=== PATIENT | female | born 1970 | race Caucasian/White ===

== ENCOUNTER 2017-12-28 18:59 | Inpatient (IN) | payer SELFPAY ==
[~2017-12-28] VITALS: Ht 162.6 cm; Wt 74.6 kg
[2017-12-28 19:04] VITALS: BP 126/78; PULSE 103; RESP 15; TEMP 98.1; O2SAT 96
[2017-12-28] MEDS ORDERED: HUMA100I3 SQ (19:10)
[2017-12-28] MEDS ORDERED: LEVO112T2 PO (19:10)
[2017-12-28 20:31] LABS: AUTOMATED NEUTROPHIL # 9.9 TH/MM3 (1.8-7.7); BASOPHIL # 0.1 TH/MM3 (0-0.2); BASOPHIL % 0.7 % (0.0-2.0); EOSINOPHIL # 0.1 TH/MM3 (0-0.4); EOSINOPHIL % 0.8 % (0.0-4.0); HEMATOCRIT 40.7 % (35.0-46.0); HEMOGLOBIN 13.6 GM/DL (11.6-15.3); LYMPH % 10.5 % (9.0-44.0); LYMPHOCYTE # 1.2 TH/MM3 (1.0-4.8); MEAN CELL VOLUME 94.5 FL (80.0-100.0); MEAN CORPUSCULAR HEMOGLOBIN 31.7 PG (27.0-34.0); MEAN CORPUSCULAR HGB CONC 33.5 % (32.0-36.0); MEAN PLATELET VOLUME 7.6 FL (7.0-11.0); MONO % 4.4 % (0.0-8.0); MONOCYTE # 0.5 TH/MM3 (0-0.9); NEUT % 83.6 % (16.0-70.0); PLATELET COUNT 301 TH/MM3 (150-450); RED CELL DISTRIBUTION WIDTH 12.8 % (11.6-17.2); WHITE BLOOD COUNT 11.8 TH/MM3 (4.0-11.0)
[2017-12-28 20:32] VITALS: O2SAT 97
[2017-12-28 20:34] VITALS: BP 130/74; PULSE 95; RESP 18; TEMP 98.2; O2SAT 97
[2017-12-28 20:34] LABS: BILIRUBIN, URINE NEG (NEG); BLOOD, URINE NEG (NEG); GLUCOSE,URINE 250 mg/dL (NEG); KETONE, URINE 80 OR GREATER mg/dL (NEG); NITRITE,URINE NEG (NEG); PH, URINE 5.5 (5.0-8.5); URINE LEUKOCYTE ESTERASE NEG (NEG)
[2017-12-28 20:39] LABS: CHLORIDE 99 MEQ/L (98-107); SODIUM (NA) 132 MEQ/L (136-145)
[2017-12-28 20:41] LABS: URINE COLOR YELLOW (YELLW/STRAW)
[2017-12-28 20:42] LABS: CALCIUM 8.7 MG/DL (8.5-10.1); SQUAMOUS EPITHELIAL CELL URINE 0-5 /hpf (0-5); WHITE BLOOD CELL CLUMPS FEW
[2017-12-28 20:43] LABS: ALBUMIN 3.9 GM/DL (3.4-5.0); BICARBONATE 22.7 MEQ/L (21.0-32.0); BLOOD UREA NITROGEN 16 MG/DL (7-18); GLUCOSE,RANDOM 326 MG/DL (74-106)
[2017-12-28 20:45] LABS: ALT (GPT) 24 U/L (10-53); AST (GOT) 14 U/L (15-37); GLOMERULAR FILTRATION RATE 77 ML/MIN (>89)
[2017-12-28 20:47] LABS: TOTAL BILIRUBIN ADULT 0.7 MG/DL (0.2-1.0); TOTAL PROTEIN 7.6 GM/DL (6.4-8.2)
[2017-12-28 20:48] LABS: ALKALINE PHOSPHATASE 126 U/L (45-117)
--- NOTE | 2017-12-28 20:53 | PD ---
HPI Chief Complaint: GI Complaint Time Seen by Provider: 20:51 Travel History International Travel<30 days: No Contact w/Intl Traveler<30days: No Traveled to known affect area: No History of Present Illness HPI The patient is a 47-year-old female that complains of primarily lower abdominal pain with vomiting since this morning. She had diarrhea once. She denies any fever. She claims the pain level of 7/10 and it is cramping pain. She is an insulin-dependent diabetic. She comes from [place] and has no local primary care physician. She states she does feel dehydrated. PFS Past Medical History Diabetes: Yes Patient Takes Glucophage: No Thyroid Disease: Yes Tetanus Vaccination: < 5 Years Influenza Vaccination: No ?: Unknown Past Surgical History Surgical History: No Previous Surgery Social History Alcohol Use: No Tobacco Use: Yes Substance Use: No Allergies-Medications (Allergen,Severity, Reaction): Coded Allergies: Penicillins (Verified Allergy, Severe, Swelling, 12/28/17) Reported Meds & Prescriptions Reported Meds & Active Scripts Active Reported Humalog Kwikpen Pen Inj (Insulin Lispro (Human) Inj) 300 Unit/3 Ml Pen 1 Units SQ Levothyroxine (Levothyroxine Sodium) 112 Mcg Tab 112 Mcg PO DAILY Review of Systems Except as stated in HPI: all other systems reviewed are Neg Physical Exam Narrative GENERAL: The patient is alert, mild dehydration appearing, oriented 3 in moderate apparent distress with her abdominal discomfort. Her vital signs show heart rate 103 but otherwise are normal. SKIN: Focused skin assessment warm/dry. HEAD: Atraumatic. Normocephalic. EYES: Pupils equal and round. No scleral icterus. No injection or drainage. ENT: No nasal bleeding or discharge. Mucous membranes pink and moist. NECK: Trachea midline. No JVD. CARDIOVASCULAR: Regular rate and rhythm. No murmur appreciated. RESPIRATORY: No accessory muscle use. Clear to auscultation. Breath sounds equal bilaterally. GASTROINTESTINAL: Abdomen soft, with tenderness to direct palpation in bilateral lower quadrants, right greater than left, nondistended. Hepatic and splenic margins not palpable. No guarding or rebound is present. MUSCULOSKELETAL: No obvious deformities. No clubbing. No cyanosis. No edema. NEUROLOGICAL: Awake and alert. No obvious cranial nerve deficits. Motor grossly within normal limits. Normal speech. PSYCHIATRIC: Appropriate mood and affect; insight and judgment normal. Data Data Last Documented VS Vital Signs Date Time Temp Pulse Resp B/P (MAP) Pulse Ox O2 Delivery O2 Flow Rate FiO2 12/28/17 22:58 100 18 124/77 (93) 100 Room Air 12/28/17 20:34 98.2 Orders Orders Complete Blood Count With Diff (12/28/17 20:15) Comprehensive Metabolic Panel (12/28/17 20:15) Urinalysis - C+S If Indicated (12/28/17 20:15) Iv Access Insert/Monitor (12/28/17 20:15) Oximetry (12/28/17 20:15) Lipase (12/28/17 20:15) Urine Culture (12/28/17 20:23) Ondansetron Inj (Zofran Inj) (12/28/17 21:00) Sodium Chlor 0.9% 1000 Ml Inj (Ns 1000 M (12/28/17 21:00) Morphine Inj (Morphine Inj) (12/28/17 21:00) Ct Abd/Pel W Iv Contrast(Rout) (12/28/17 22:18) Iohexol 350 Inj (Omnipaque 350 Inj) (12/28/17 22:59) Labs Laboratory Tests Test 12/28/17 20:23 White Blood Count 11.8 TH/MM3 Red Blood Count 4.30 MIL/MM3 Hemoglobin 13.6 GM/DL Hematocrit 40.7 % Mean Corpuscular Volume 94.5 FL Mean Corpuscular Hemoglobin 31.7 PG Mean Corpuscular Hemoglobin Concent 33.5 % Red Cell Distribution Width 12.8 % Platelet Count 301 TH/MM3 Mean Platelet Volume 7.6 FL Neutrophils (%) (Auto) 83.6 % Lymphocytes (%) (Auto) 10.5 % Monocytes (%) (Auto) 4.4 % Eosinophils (%) (Auto) 0.8 % Basophils (%) (Auto) 0.7 % Neutrophils # (Auto) 9.9 TH/MM3 Lymphocytes # (Auto) 1.2 TH/MM3 Monocytes # (Auto) 0.5 TH/MM3 Eosinophils # (Auto) 0.1 TH/MM3 Basophils # (Auto) 0.1 TH/MM3 CBC Comment DIFF FINAL Differential Comment Urine Color YELLOW Urine Turbidity CLEAR Urine pH 5.5 Urine Specific [place] GREATER THAN 1.035 Urine Protein NEG mg/dL Urine Glucose (UA) 250 mg/dL Urine Ketones 80 OR GREATER mg/dL Urine Occult Blood NEG Urine Nitrite NEG Urine Bilirubin NEG Urine Leukocyte Esterase NEG Urine WBC 9-14 /hpf Urine WBC Clumps FEW Urine Squamous Epithelial Cells 0-5 /hpf Microscopic Urinalysis Comment CULTURE INDICATED Blood Urea Nitrogen 16 MG/DL Creatinine 0.80 MG/DL Random Glucose 326 MG/DL Total Protein 7.6 GM/DL Albumin 3.9 GM/DL Calcium Level 8.7 MG/DL Alkaline Phosphatase 126 U/L Aspartate Amino Transf (AST/SGOT) 14 U/L Alanine Aminotransferase (ALT/SGPT) 24 U/L Total Bilirubin 0.7 MG/DL Sodium Level 132 MEQ/L Potassium Level 3.8 MEQ/L Chloride Level 99 MEQ/L Carbon Dioxide Level 22.7 MEQ/L Anion Gap 10 MEQ/L Estimat Glomerular Filtration Rate 77 ML/MIN Lipase 103 U/L MDM Medical Decision Making Medical Screen Exam Complete: Yes Emergency Medical Condition: Yes Medical Record Reviewed: Yes Interpretation(s) An 80 or greater ketones and 9-14 white cells with few white cell clampings and culture is indicated. The complete metabolic profile shows a GFR of 77, glucose 326, alkaline phosphatase 126 with sodium 132 but is otherwise unremarkable. The lipase is normal. The CBC shows a white count of 11,800 with 84% neutrophils but is otherwise unremarkable. The CT abdomen pelvis shows acute appendicitis, there are no free air, focal drainable fluid collections and the bowel otherwise appears normal. Differential Diagnosis Sinusitis, gastroenteritis, colitis, diverticulitis, electrolyte disorder, dehydration, anemia, urinary tract infection Narrative Course The patient has acute appendicitis. She also has a possible urine infection. Walter Pa MD Dec 28, 2017 20:53
[2017-12-28] MEDS ORDERED: MORPHINE SULFATE 4 MG/ML INJ IV PUSH ONE (21:00)
[2017-12-28] MEDS ORDERED: ONDANSETRON HCL 4 MG/2 ML VIAL IV ONE (21:00)
[2017-12-28] MEDS: SODIUM CHLOR 0.9% 1000 ML INJ 1,000 ML IV SCH ×2 (21:10→22:30)
[2017-12-28 22:58] VITALS: BP 124/77; PULSE 100; RESP 18; O2SAT 100
[2017-12-28] MEDS ORDERED: IOHEXOL 350 MG/ML 10 ML VIAL (for RAD DIAG) IVCONTRAST ONE (22:59)
--- NOTE | 2017-12-28 23:12 | RADRPT ---
EXAM DATE/TIME: 12/28/2017 22:55 [facility] COMPARISON: No previous studies available for comparison. INDICATIONS : Abdominal pain with vomiting. IV CONTRAST: 100 cc Omnipaque 350 (iohexol) IV ORAL CONTRAST: No oral contrast ingested. RADIATION DOSE: 12.64 CTDIvol (mGy) MEDICAL HISTORY : Diabetes mellitus type 2. SURGICAL HISTORY : None. ENCOUNTER: Initial ACUITY: 1 day PAIN SCALE: 7/10 LOCATION: abdomen TECHNIQUE: Volumetric scanning of the abdomen and pelvis was performed. Using automated exposure control and ad justment of the mA and/or kV according to patient size, radiation dose was kept as low as reasonably achievable to obtain optimal diagnostic quality images. DICOM format image data is available electro nically for review and comparison. FINDINGS: LOWER LUNGS: The visualized lower lungs are clear. LIVER: Homogeneous density without lesion. There is no dilation of the biliary tree. No calcified gallston es. SPLEEN: Normal size without lesion. PANCREAS: Within normal limits. KIDNEYS: Bilateral small subcentimeter hypodense cystic lesions which are to small to fully characterize. Symm etrical enhancement without evidence for radiopaque renal calculi or hydronephrosis. ADRENAL GLANDS: 1 cm nodule in the left adrenal gland. VASCULAR: There is no aortic aneurysm. BOWEL/MESENTERY: The appendix is enlarged with mild surrounding inflammatory stranding. No free air or focal drainable fluid collections. Bowel otherwise appears unremarkable. ABDOMINAL WALL: Within normal limits. RETROPERITONEUM: There is no lymphadenopathy. BLADDER: No wall thickening or mass. REPRODUCTIVE: Within normal limits. INGUINAL: There is no lymphadenopathy or hernia. MUSCULOSKELETAL: Within normal limits for patient age. CONCLUSION: 1. Findings consistent with acute appendicitis. No evidence for rupture or abscess at this time. 2. 1 cm left adrenal nodule. This demonstrates indeterminate density on this enhanced CT exam. Adrena l mass MRI exam may be performed for further evaluation on outpatient basis as clinically warranted. Lex Gallegos MD on December 28, 2017 at 23:08 Board Certified Radiologist. This report was verified electronically.
[2017-12-28] MEDS ORDERED: CHLORHEXIDINE GLUCONATE 2 % 1 PACK (2 CLOTHS) TOP PRN (23:30)
[2017-12-28] MEDS ORDERED: POTASSIUM CHLORIDE 25 MEQ EFFERVESCENT TAB PO PRN (23:30)
[2017-12-28] MEDS ORDERED: SODIUM PHOSPHATE INJ 30 MMOL in SODIUM CHLOR 0.9% 250 ML INJ 240 ML IV PRN (23:30)
[2017-12-28] MEDS ORDERED: RESP: ALBUTEROL 2.5 MG/IPRATROPIUM 0.5 MG NEB (PRN) INH (23:30)
[2017-12-28] MEDS ORDERED: LACTATED RINGER'S 1000 ML INJ 1,000 ML IV SCH (23:30)
[2017-12-28] MEDS ORDERED: MISC INFORMATION OTHER ONE (23:30)
[2017-12-28] MEDS ORDERED: POTASSIUM PHOSPHATE MONOBASIC 500 MG TAB PO/TUBE PRN (23:30)
[2017-12-28] MEDS ORDERED: MAGNESIUM OXIDE 400 MG TAB PO PRN (23:30)
[2017-12-28] MEDS ORDERED: INSULIN REGULAR (IV INFUSION) 100 UNITS in SODIUM CHLORIDE 0.9% INJ 99 ML IV PRN (23:30)
[2017-12-28] MEDS ORDERED: POTASSIUM PHOSPHATE MONOBASIC 500 MG TAB PO PRN (23:30)
[2017-12-28] MEDS ORDERED: LACTATED RINGER'S 1000 ML INJ 1,000 ML IV ONE (23:30)
[2017-12-28] MEDS ORDERED: POTASSIUM PHOSPHATE INJ 30 MMOL in SODIUM CHLOR 0.9% 250 ML INJ 250 ML IV PRN (23:30)
[2017-12-28] MEDS ORDERED: LEVOFLOXACIN 500 MG PREMIX INJ 100 ML IV ONE (23:30)
[2017-12-28] MEDS ORDERED: MAGNESIUM SULFATE INJ 4 GM in SODIUM CHLORIDE 0.9% INJ 92 ML IV PRN (23:30)
[2017-12-28] MEDS ORDERED: CIPROFLOXACIN 400 MG PREMIX 200 ML IV ONE (23:30)
[2017-12-28] MEDS ORDERED: DEXTROSE 50% IN WATER 50 ML VIAL(D50) IV PUSH PRN (23:30)
[2017-12-28] MEDS ORDERED: POTASSIUM CHLOR 40 MEQ PREMIX 100 ML IV PRN ×2 (23:30)
[2017-12-28] MEDS ORDERED: POTASSIUM CHLOR 20 MEQ PREMIX 100 ML IV PRN ×2 (23:30)
[2017-12-28] MEDS ORDERED: MISCELLANEOUS NURSING INFORMATION XX SCH (23:30)
[2017-12-28] MEDS ORDERED: MAGNESIUM SULFATE INJ 2 GM in SODIUM CHLORIDE 0.9% INJ 96 ML IV PRN (23:30)
[2017-12-28] MEDS ORDERED: INSULIN HUMAN REGULAR 1,000 UNITS/10 ML VIAL IV PUSH ONE (23:30)
[2017-12-28] MEDS ORDERED: ONDANSETRON HCL 4 MG/2 ML VIAL IV PUSH PRN (23:30)
[2017-12-29] VITALS (9 sets, daily range): BP systolic 90–130; BP diastolic 54–70; PULSE 100–109; RESP 12–22; TEMP 98.4–98.7; O2SAT 95–99
[2017-12-29] MEDS ORDERED: MORPHINE SULFATE 4 MG/ML INJ IV PUSH ONE (00:15)
[2017-12-29] MEDS ORDERED: ONDANSETRON HCL 4 MG/2 ML VIAL IV ONE (00:15)
[2017-12-29] MEDS ORDERED: HYDROmorphone HCL PF 2 MG/ML VIAL IV PUSH PRN (02:45)
[2017-12-29] MEDS ORDERED: DEXTROSE 50% IN WATER 50 ML VIAL(D50) IV PUSH PRN (03:00)
[2017-12-29] MEDS ORDERED: INSULIN REGULAR (IV INFUSION) 100 UNITS in SODIUM CHLORIDE 0.9% INJ 99 ML IV PRN (03:00)
[2017-12-29] MEDS ORDERED: POTASSIUM CHLOR 20 MEQ PREMIX 100 ML IV ONE (03:00)
[2017-12-29] MEDS ORDERED: MISC INFORMATION OTHER ONE (03:00)
--- NOTE | 2017-12-29 03:03 | HHI.HP ---
HPI Service Critical Care Medicine Primary Care Physician No Primary Care Physician Admission Diagnosis Acute appendicitis, diabetes mellitus poor control, dehydration Diagnosis: Chief Complaint: abdominal pain Travel History International Travel<30 Days: No Contact w/Intl Traveler <30 Da: No Traveled to Known Affected Are: No History of Present Illness This is a 47-year-old female with a history of type 1 diabetes who presents with 1 day of right lower quadrant abdominal pain, nausea, vomiting. Patient has a number of family members who have been sick with gastroenteritis this week , and she initially thought this was a similar presentation. However her abdominal pain continue to worsen. In the emergency department she was found to have leukocytosis, and CT abdomen and pelvis which demonstrated acute appendicitis. She also has a glucose over 300 and high levels of ketones in her urine suggestive early DKA. Her anion gap is still 10 and she does not appear acidotic. Review of Systems Constitutional: COMPLAINS OF: Fever, Chills, DENIES: Fatigue Respiratory: DENIES: Cough, Wheezing, Sputum production, Shortness of breath Cardiovascular: DENIES: Chest pain, Syncope, Dyspnea on Exertion, Lower Extremity Edema Gastrointestinal: COMPLAINS OF: Abdominal pain, Nausea, Vomiting, DENIES: Black stools, Bloody stools, Constipation, Diarrhea Musculoskeletal: DENIES: Joint pain, Muscle aches Neurologic: DENIES: Abnormal gait, Headache Past Family Social History Allergies: Coded Allergies: Penicillins (Verified Allergy, Severe, Swelling, 12/28/17) Past Medical History Type I DM Hypothyroidism Past Surgical History No prior surgeries Reported Medications Humalog Kwikpen Pen Inj (Insulin Lispro (Human) Inj) 300 Unit/3 Ml Pen 1 Units SQ Levothyroxine (Levothyroxine Sodium) 112 Mcg Tab 112 Mcg PO DAILY Active Ordered Medications See MAR Family History reviewed and found to be noncontributory to her acute illness Social History +tob, denies etoh, doa. Physical Exam Vital Signs Vital Signs Date Time Temp Pulse Resp B/P (MAP) Pulse Ox O2 Delivery O2 Flow Rate FiO2 12/29/17 00:20 103 18 124/68 (86) 98 Room Air 12/28/17 22:58 100 18 124/77 (93) 100 Room Air 12/28/17 20:34 98.2 95 18 130/74 (92) 97 Room Air 12/28/17 20:32 97 Room Air 12/28/17 19:04 98.1 103 15 126/78 (94) 96 Physical Exam GENERAL: Middle-aged female, lying in bed, in distress due to abdominal pain HEENT: Normocephalic. Atraumatic. Pupils equal, round, reactive, conjugate. Mucous membranes are dry NECK: Trachea is midline. There is no JVD. CHEST: Mildly tachypneic. Room air. Equal chest rise. CARDIOVASCULAR: Normal rate, regular rhythm. Sinus by telemetry ABDOMEN: Soft, nontender, nondistended. No guarding. MUSCULOSKELETAL: Pulses 2+. No peripheral edema. NEUROLOGICAL: RASS 0. GCS 15. No focal deficits. Laboratory Laboratory Tests Test 12/28/17 20:23 12/29/17 00:04 12/29/17 01:30 White Blood Count 11.8 Red Blood Count 4.30 Hemoglobin 13.6 Hematocrit 40.7 Mean Corpuscular Volume 94.5 Mean Corpuscular Hemoglobin 31.7 Mean Corpuscular Hemoglobin Concent 33.5 Red Cell Distribution Width 12.8 Platelet Count 301 Mean Platelet Volume 7.6 Neutrophils (%) (Auto) 83.6 Lymphocytes (%) (Auto) 10.5 Monocytes (%) (Auto) 4.4 Eosinophils (%) (Auto) 0.8 Basophils (%) (Auto) 0.7 Neutrophils # (Auto) 9.9 Lymphocytes # (Auto) 1.2 Monocytes # (Auto) 0.5 Eosinophils # (Auto) 0.1 Basophils # (Auto) 0.1 CBC Comment DIFF FINAL Differential Comment Urine Color YELLOW Urine Turbidity CLEAR Urine pH 5.5 Urine Specific [place] GREATER THAN 1.035 Urine Protein NEG Urine Glucose (UA) 250 Urine Ketones 80 OR GREATER Urine Occult Blood NEG Urine Nitrite NEG Urine Bilirubin NEG Urine Leukocyte Esterase NEG Urine WBC 9-14 Urine WBC Clumps FEW Urine Squamous Epithelial Cells 0-5 Microscopic Urinalysis Comment CULTURE INDICATED Blood Urea Nitrogen 16 Creatinine 0.80 Random Glucose 326 Total Protein 7.6 Albumin 3.9 Calcium Level 8.7 Alkaline Phosphatase 126 Aspartate Amino Transf (AST/SGOT) 14 Alanine Aminotransferase (ALT/SGPT) 24 Total Bilirubin 0.7 Sodium Level 132 Potassium Level 3.8 Chloride Level 99 Carbon Dioxide Level 22.7 Anion Gap 10 Estimat Glomerular Filtration Rate 77 Lipase 103 Prothrombin Time 10.0 Prothromb Time International Ratio 1.0 Activated Partial Thromboplast Time 24.8 Date/Time Source Procedure Growth Status 12/28/17 20:23 Urine Clean Catch Urine Culture Pending Received Result Diagram: 12/28/17202212/28/172022 Imaging Last Impressions Abdomen/Pelvis CT 12/28/172217 Signed Impressions: Service Date/Time: Thursday, December 28, 2017 22:55 - CONCLUSION: 1. Findings consistent with acute appendicitis. No evidence for rupture or abscess at this time. 2. 1 cm left adrenal nodule. This demonstrates indeterminate density on this enhanced CT exam. Adrenal mass MRI exam may be performed for further evaluation on outpatient basis as clinically warranted. MD Sancho Fernando VTE Risk Assessment Caprini VTE Risk Assessment: Mod/High Risk (score >= 2) Caprini Risk Assessment Model Point Value = 1 Point Value = 2 Point Value = 3 Point Value = 5 Age 41-60 Minor surgery BMI > 25 kg/m2 Swollen legs Varicose veins or History of unexplained or recurrent spontaneous Oral contraceptives or hormone replacement Sepsis (< 1 month) Serious lung disease, including pneumonia (< 1 month) Abnormal pulmonary function Acute myocardial infarction Congestive heart failure (< 1 month) History of inflammatory bowel disease Medical patient at bed rest Age 61-74 Arthroscopic surgery Major open surgery (> 45 min) Laparoscopic surgery (> 45 min) Malignancy Confined to bed (> 72 hours) Immobilizing plaster cast Central venous access Age >= 75 History of VTE Family history of VTE Factor V Leiden Prothrombin [id number] Lupus anticoagulant Anticardiolipin antibodies Elevated serum homocysteine Heparin-induced thrombocytopenia Other congenital or acquired thrombophilia Stroke (< 1 month) Elective arthroplasty Hip, pelvis, or leg fracture Acute spinal cord injury (< 1 month) Prophylaxis Regimen Total Risk Factor Score Risk Level Prophylaxis Regimen 0-1 Low Early ambulation 2 Moderate Order ONE of the following: *Sequential Compression Device (SCD) *Heparin 5000 units SQ BID 3-4 Higher Order ONE of the following medications: *Heparin 5000 units SQ TID *Enoxaparin/Lovenox 40 mg SQ daily (WT < 150 kg, CrCl > 30 mL/min) *Enoxaparin/Lovenox 30 mg SQ daily (WT < 150 kg, CrCl > 10-29 mL/min) *Enoxaparin/Lovenox 30 mg SQ BID (WT < 150 kg, CrCl > 30 mL/min) AND/OR *Sequential Compression Device (SCD) 5 or more Highest Order ONE of the following medications: *Heparin 5000 units SQ TID (Preferred with Epidurals) *Enoxaparin/Lovenox 40 mg SQ daily (WT < 150 kg, CrCl > 30 mL/min) *Enoxaparin/Lovenox 30 mg SQ daily (WT < 150 kg, CrCl > 10-29 mL/min) *Enoxaparin/Lovenox 30 mg SQ BID (WT < 150 kg, CrCl > 30 mL/min) AND *Sequential Compression Device (SCD) Assessment and Plan Assessment and Plan Assessment: 47-year-old female with type 1 diabetes and acute appendicitis, also with evidence of early diabetic ketoacidosis. We'll admit to ICU. We'll start insulin drip and aggressive fluid resuscitation. We'll continue nothing by mouth status for now and plan on taking her first thing in the morning to the operating room with general surgery for appendectomy. Acute Appendicitis - antibiotics per surgery - dilaudid 0.5mg iv q3h prn for abdominal pain - NPO - gen surgery consulted. Diabetic Ketoacidosis - insulin drip algorithm #2 - D5LR @ 200cc/hr - aggressive K replacement - am BMP - q1h accuchecks - will need aggressive glycemic control and ensure she is adequately resuscitated to prevent perioperative morbidity from DKA. Hypothyroidism - home synthroid SCDs hold pharmacologic DVT prophylaxis pre-op. Dispo: admit to ICU for aggressive insulin therapy for early DKA. can go to surgery and if she improves post-operatively, can be transitioned out of ICU. Hamilton Langley MD Dec 29, 2017 03:03
[2017-12-29] MEDS: DEXTROSE 5%-LACTATED RING INJ 1,000 ML IV SCH ×3 (03:06→12:34)
[2017-12-29 03:40] LABS: BICARBONATE 22.8 MEQ/L (21.0-32.0); CALCIUM 8.2 MG/DL (8.5-10.1); CREATININE 0.58 MG/DL (0.50-1.00)
[2017-12-29 03:50] LABS: HEMATOCRIT 37.4 % (35.0-46.0); HEMOGLOBIN 12.6 GM/DL (11.6-15.3); MEAN CELL VOLUME 95.2 FL (80.0-100.0); MEAN CORPUSCULAR HEMOGLOBIN 32.2 PG (27.0-34.0); MEAN CORPUSCULAR HGB CONC 33.8 % (32.0-36.0); MEAN PLATELET VOLUME 7.3 FL (7.0-11.0); PLATELET COUNT 251 TH/MM3 (150-450); RED BLOOD COUNT 3.92 MIL/MM3 (4.00-5.30); RED CELL DISTRIBUTION WIDTH 13.4 % (11.6-17.2); WHITE BLOOD COUNT 10.6 TH/MM3 (4.0-11.0)
[2017-12-29] MEDS ORDERED: CHLORHEXIDINE GLUCONATE 2 % 1 PACK (2 CLOTHS) TOP SCH (04:00)
[2017-12-29] MEDS ORDERED: BUPIVACAINE/EPINEPHRINE 0.25% 50 ML VIAL ONE (06:46)
[2017-12-29] MEDS ORDERED: LEVOTHYROXINE SODIUM 112 MCG TAB PO SCH (07:00)
[2017-12-29] MEDS ORDERED: ACETAMINOPHEN/HYDROcodone 325 MG/10 MG TAB PO PRN (09:00)
[2017-12-29] MEDS ORDERED: NALOXONE HCL 0.4 MG/ML AMP IV PUSH PRN (09:00)
[2017-12-29] MEDS ORDERED: BENZOCAINE 20% ORAL SPR 60 ML CAN MT PRN (09:00)
[2017-12-29] MEDS ORDERED: ACETAMINOPHEN/HYDROcodone 325 MG/5 MG TAB PO PRN (09:00)
[2017-12-29] MEDS ORDERED: Post-op Orders (for Pharmacy) XX ONE (09:00)
[2017-12-29] MEDS ORDERED: MORPHINE SULFATE 4 MG/ML INJ ONE (09:22)
[2017-12-29] MEDS ORDERED: DO NOT ADM ANY ANTICOAGULANT DRUGS PRN (09:45)
--- NOTE | 2017-12-29 10:45 | MB ---
cc: Robin Bonilla MD DATE OF CONSULT: 12/29/2017 TIME: 0700 PHYSICIAN REQUESTING CONSULTATION: Jose Langley, intensive care laborer operator REASON FOR CONSULTATION: Early appendicitis, patient with early DKA. HISTORY OF PRESENT ILLNESS: The patient is a 47-year-old female with a history of type 1 diabetes who presented to [facility] several hours ago with right lower quadrant pain. Workup was performed and patient was found to have leukocytosis and CT scan concerning for appendicitis. The patient's sugars were 326 and the patient had greater than 80 ketones. The patient was not found to be acidotic, but was concerning for possible early development of DKA. The patient was transferred to [facility] intensive care unit and underwent insulin drip and resuscitation, hydration by intensive care unit for preoperative optimization. The patient was felt to be stable and blood sugars were under 150 this morning and the patient was felt to be a candidate to proceed to the operating room for appendectomy. The patient states that she is visiting from [place] and developed increasing right lower quadrant pain over the last 18 hours. No associated symptoms. She has had no nausea, vomiting, constipation, diarrhea, fevers, chills, night sweats, or any other complaints. REVIEW OF SYSTEMS: A 12-point review of systems was conducted with the patient and was negative except for the pertinent positives mentioned above in the history of present illness. PAST MEDICAL HISTORY: Insulin-dependent diabetes, hypothyroidism. PAST SURGICAL HISTORY: None. MEDICATIONS: Humalog insulin. She is on lispro insulin. She is on levothyroxine. FAMILY HISTORY: Noncontributory. SOCIAL HISTORY: The patient does have a history of tobacco use. Denies alcohol or illicit drug use. PHYSICAL EXAMINATION: VITAL SIGNS: Pulse 103, respiratory rate 18, blood pressure 124/68, O2 saturation 98%. The patient is a well-developed, well-nourished female, in no acute distress. HEENT: Head is normocephalic, atraumatic. Pupils are round and reactive, accommodate to light. Sclerae anicteric. Oral cavity is clear. Airway is patent. NECK: Supple. No JVD. Breath sounds are present bilaterally with an unlabored breathing pattern. HEART: Regular in rhythm. PMI is nondisplaced. ABDOMEN: Soft. Tender in the right lower quadrant subjectively without focal peritonitis or rebound tenderness. No surgical scars. No hernias. Normal bowel sounds. BACK: No CVA tenderness. EXTREMITIES: No clubbing, cyanosis, or edema. NEUROLOGIC: The patient is anxious. Mood, judgment, and insight are intact. The patient is alert and oriented x 3. Nonfocal peripheral exam. Cranial nerves 2-12 are grossly intact. ASSESSMENT AND PLAN: The patient is a 47-year-old female with likely acute appendicitis. The patient has a CT scan very concerning for appendicitis and the clinical history is consistent with acute appendicitis. This is likely nonruptured, is early appendicitis. I agree with optimization and treatment of the patient's glucose and ketonuria and dehydration prior to surgery and anesthesia. The patient, I do feel, is stable for surgery at this time. We will proceed to the operating room next available time. I discussed the risks, benefits, and alternatives of laparoscopic appendectomy for treatment of acute appendicitis and the patient agrees to undergo the procedure. Thank you very much for this consultation. MD EDMOND ToureG/TI/ , 09:00 AM , 09:45 AM [email or web address]
--- NOTE | 2017-12-29 10:49 | MP ---
cc: Robin Bonilla MD DATE OF OPERATION: 12/29/2017 PREOPERATIVE DIAGNOSIS: Acute appendicitis. POSTOPERATIVE DIAGNOSIS: Acute suppurative appendicitis, uncomplicated. PROCEDURE: Laparoscopic appendectomy. ATTENDING SURGEON: Robin Bonilla MD ECONOMICS LECTURER: Staff. ANESTHESIA: General. BLOOD LOSS: Less than 10 mL COMPLICATIONS: None. FINDINGS: Acute suppurative appendicitis without rupture. INDICATIONS FOR THE PROCEDURE: The patient is a 47-year-old female with less than 24-hours of right lower quadrant pain. The patient was found to have early DKA and type 1 diabetes and underwent admission to the intensive care unit and resuscitation and glucose control prior to surgery. The patient was found to be optimized for surgery this morning and it was recommended to proceed to the operating room for appendectomy. PROCEDURE: The patient was taken to the operating room, placed in a supine position, placed under general endotracheal anesthesia. The patient's abdomen was prepped and draped in a sterile fashion. Time out was performed. The abdomen was entered through a Enriqueta type technique and periumbilical incision. Local anesthetic was used at this site, as well as all port sites. We directly opened the fascia over the left rectus sheath, spread the rectus muscle laterally and entered the abdomen through the posterior rectus sheath on direct visualization. We placed a 10 mm trocar into the abdomen under direct visualization and insufflated the abdomen. We used a 5 mm 30 degree camera to survey the abdomen. There was some purulent fluid in the right lower quadrant with no other pathology. We placed two 5 mm ports, one in the suprapubic position and one in the left lower quadrant under direct visualization of the laparoscope. We were able to identify the appendix easily. The base was normal and not inflamed and most of the inflammation was towards the body and tip of the appendix. We made a window at the base of the appendix and divided this with white load on the [place] GI stapler. We then used two white loads on the [place] GI stapler device at the mesentery as this was a very long redundant appendix and required division of all vessels. We had excellent hemostasis on our staple line. The appendix was removed from the abdomen with the Endo Catch bag through the periumbilical port. We had to use a suction form tamping machine operator to irrigate and suction out a small amount of purulent fluid from the right lower quadrant, as well as from the pelvis. All irrigation was removed and it was clear. We had no evidence of any leak, ischemia or bleeding from our surgery site. We relocated the omentum back over the right lower quadrant in normal anatomic position. We removed all ports under the visualization of the laparoscope and expressed pneumoperitoneum. The closed the Enriqueta type port at the fascial layer with a [id number] 0-Vicryl suture. We closed the skin with 4-0 Monocryl and Dermabond. The patient was discontinued from anesthesia and taken to the PACU in stable condition. The patient tolerated the procedure well with no apparent complications. All counts were correct and I was present and scrubbed for the entire procedure. Robin Bonilla MD AWG/DL/ , 09:03 AM , 09:47 AM
[2017-12-29] MEDS ORDERED: ONDANSETRON HCL 4 MG/2 ML VIAL IV PUSH ONE (12:00)
[2017-12-29] MEDS ORDERED: ROCURONIUM INJ 50 MG/5 ML SYRINGE IV PUSH ONE (12:00)
[2017-12-29] MEDS ORDERED: KETOROLAC TROMETHAMINE 30 MG/ML (IVP) VIAL IV PUSH ONE (12:00)
[2017-12-29] MEDS ORDERED: PROPOFOL 200 MG/20 ML AMP IV ONE (12:00)
[2017-12-29] MEDS ORDERED: LIDOCAINE HCL 1% PF 5 ML SYRINGE OTHER ONE (12:00)
[2017-12-29] MEDS ORDERED: HYDR-3111 PO (12:06)
--- NOTE | 2017-12-29 12:30 | HHI.PR ---
Subjective Remarks Acute appendicitis s/p appendectomy/DKA 01/07/18-patient seen and examined, she is status post appendectomy and denies any significant abdominal pain. DKA resolved Objective Vitals Vital Signs Date Time Temp Pulse Resp B/P (MAP) Pulse Ox O2 Delivery O2 Flow Rate FiO2 12/29/17 10:00 98.7 109 12 90/54 (66) 95 12/29/17 09:30 102 16 99/59 (72) 96 Room Air 12/29/17 09:15 100 16 115/63 (80) 96 Room Air 12/29/17 09:00 104 16 118/72 (87) 96 Room Air 12/29/17 08:52 98.4 108 16 131/77 (95) 99 Room Air 12/29/17 07:30 Nasal Cannula 2 12/29/17 07:30 98.2 101 15 100/59 (73) 96 12/29/17 07:30 101 12/29/17 07:00 106 12/29/17 07:00 98 Room Air 12/29/17 06:00 100 12/29/17 04:00 98.6 106 22 96/57 (70) 99 12/29/17 04:00 106 12/29/17 02:00 98.7 100 15 130/70 (90) 99 12/29/17 02:00 98 Room Air 12/29/17 02:00 100 12/29/17 00:25 98.4 84 18 128/65 (86) 100 12/29/17 00:20 103 18 124/68 (86) 98 Room Air 12/28/17 22:58 100 18 124/77 (93) 100 Room Air 12/28/17 20:34 98.2 95 18 130/74 (92) 97 Room Air 12/28/17 20:32 97 Room Air 12/28/17 19:04 98.1 103 15 126/78 (94) 96 I/O 12/28/17 12/28/17 12/28/17 12/29/17 12/29/17 12/29/17 07:00 15:00 23:00 07:00 15:00 23:00 Intake Total 1000 ml 1100 ml 10 ml Output Total 500 ml Balance 1000 ml 600 ml 10 ml Intake IV Total 1000 ml 1100 ml 10 ml Output Urine Total 500 ml # Voids 1 Result Diagram: 12/29/17 0258 12/29/17 0258 Imaging Last Impressions Abdomen/Pelvis CT 12/28/172217 Signed Impressions: Service Date/Time: Thursday, December 28, 2017 22:55 - CONCLUSION: 1. Findings consistent with acute appendicitis. No evidence for rupture or abscess at this time. 2. 1 cm left adrenal nodule. This demonstrates indeterminate density on this enhanced CT exam. Adrenal mass MRI exam may be performed for further evaluation on outpatient basis as clinically warranted. Lex Gallegos MD Objective Remarks GENERAL: NAD SKIN: Warm and dry. HEAD: Normocephalic. EYES: No scleral icterus. No injection or drainage. NECK: Supple, trachea midline. No JVD or lymphadenopathy. CARDIOVASCULAR: Regular rate and rhythm without murmurs, gallops, or rubs. RESPIRATORY: Breath sounds equal bilaterally. No accessory muscle use. GASTROINTESTINAL: Abdomen soft, non-tender, nondistended. inc c/d/i MUSCULOSKELETAL: No cyanosis, or edema. BACK: Nontender without obvious deformity. No CVA tenderness. Procedures Lap appendectomy 12/29/17 A/P Problem List: (1) Appendicitis ICD Code: K37 - Unspecified appendicitis Assessment and Plan 47-year-old female with Acute appendicitis Status post lap appendectomy 12/29/17 Management per general surgery Continue current pain management DKA Resolved status post insulin drip Diabetes type 1 Resume outpatient medications Hypothyroidism Continue with Synthroid Patient will be discharged home Discharge Planning Discharge patient to home Condition on discharge: Improved Regular Diet as tolerated Ad Paulina activity Rx written: Vicodin every 4 when necessary Follow-up with primary care physician in one week General surgery per protocol Problem Qualifiers (1) Appendicitis: Qualified Codes: K35.80 - Unspecified acute appendicitis Toney Morales MD Dec 29, 2017 12:29
[2017-12-30] MEDS ORDERED: ENOXAPARIN SODIUM 40 MG/0.4 ML SYRINGE SQ SCH (08:00)
== END 2017-12-29 14:31 | disposition home or self-care (01) | DRG 341 ==
LOC: PHED 18:59 → PHEDA 23:32 → N03A 12-29 01:21
PROVIDERS: ADMIT Hospitalist; ATTEND Hospitalist
PROC: 0DTJ4ZZ Resection of Appendix, Percutaneous Endoscopic Approach (ICD-10-PCS; principal; 2017-12-29 07:52)
DX: K35.80 Unspecified acute appendicitis (principal); E10.10 Type 1 diabetes mellitus with ketoacidosis without coma; E27.8 Other specified disorders of adrenal gland; E03.9 Hypothyroidism, unspecified; E07.9 Disorder of thyroid, unspecified; E86.0 Dehydration; Z72.0 Tobacco use; Z79.4 Long term (current) use of insulin
CPT/HCPCS: 74177; 80048; 80053; 81001; 82948; 83690; 85025; 85027; 85610; 85730; 87086; 87641; 88304; 96361; 96374; 96375; J0744; J1170; J1815; J1817; J1885; J1956; J2270; J2405; J3010; J7030; J7120; J7121; Q9967